=== PATIENT | female | born 1975 | race American Indian/Alaskan Native ===

== ENCOUNTER 2017-04-24 19:21 | Emergency (ER) | payer MEDICAID, OTHER ==
--- NOTE | 2017-04-24 20:02 | EDM.PDOC ---
ED HPI GENERAL MEDICAL PROBLEM - General Chief Complaint: Genitourinary Problem Stated Complaint: UTI [id number] Time Seen by Provider: 04/24/17 19:59 Source of Information: Reports: Patient History Limitations: Reports: No Limitations - History of Present Illness INITIAL COMMENTS - FREE TEXT/NARRATIVE: onset Sx today with intense burning did take a "azo" feeling slightly better. 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(s) Other Treatments SURVEY RESEARCH PROFESSOR: Azo Bladder Pain Score (Numeric/FACES): 8 - Related Data Allergies Allergy/AdvReac Type Severity Reaction Status Date / Time No Known Allergies Allergy Verified 04/24/17 19:30 Home Meds: Home Meds Cetirizine [[id number]] 04/24/17 [History] Multivitamin [Multi-Day Vitamins] 04/24/17 [History] Phenazopyridine HCl [Azo Urinary Pain Relief] 04/24/17 [History] Past Medical History Genitourinary History: Reports: UTI, Recurrent - Past Surgical History HEENT Surgical History: Reports: Other (See Below) Other HEENT Surgeries/Procedures: Tubes when younger Female Surgical History: Reports: None Social & Family History - Family History Family Medical History: Noncontributory - Tobacco Use Smoking Status *Q: Former Smoker Used Tobacco, but Quit: Yes Month Tobacco Last Used: 04/2002 - Caffeine Use Caffeine Use: Reports: None - Recreational Drug Use Recreational Drug Use: No ED ROS GENERAL - Review of Systems Review Of Systems: ROS reveals no pertinent complaints other than HPI. ED EXAM, RENAL/ - Physical Exam Exam: See Below Exam Limited By: No Limitations General Appearance: Alert, WD/WN, Mild Distress, Other (discomfort) Ears: Hearing Grossly Normal Throat/Mouth: Normal Voice, No Airway Compromise Head: Atraumatic Neck: Non-Tender, Full Range of Motion Respiratory/Chest: No Respiratory Distress Cardiovascular: Regular Rate, Rhythm GI/Abdominal: Soft, Non-Tender, Other. No: Guarding, Rigid, Rebound ( suprapubic discomfort) Neurological: Alert, Oriented, Normal Cognition, Normal Gait, No Motor/Sensory Deficits Psychiatric: Normal Affect, Normal Mood Skin Exam: Warm, Dry, Normal Color Lymphatic: No Adenopathy Course - Vital Signs Last Recorded V/S: Last Vital Signs Temp 36.6 C 04/24/17 19:25 Pulse 82 04/24/17 19:25 Resp 16 04/24/17 19:25 BP 138/97 H 04/24/17 19:25 Pulse Ox 99 04/24/17 19:25 - Orders/Labs/Meds Orders: Active Orders 24 hr Category Date Time Status UA W/MICROSCOPIC [URIN] Stat Lab 04/24/17 19:58 Results Phenazopyridine [Urinary Pain Relief] Med 04/24/17 20:17 Once 95 mg PO ONETIME ONE Sulfamethoxazole/Trimethoprim [Septra DS] Med 04/24/17 20:17 Once 1 tab PO ONETIME ONE Labs: Laboratory Tests 04/24/17 Range/Units 19:58 Urine Color [place] (YELLOW) Urine Appearance Slightly cloudy (CLEAR) Urine pH 6.0 (5.0-9.0) Ur Specific [place] 1.010 (1.005-1.030) Urine Protein 30 H (NEGATIVE) Urine Glucose (UA) 100 H (NEGATIVE) Urine Ketones Negative (NEGATIVE) Urine Occult Blood Large H (NEGATIVE) Urine Nitrite Positive H (NEGATIVE) Urine Bilirubin Negative (NEGATIVE) Urine Urobilinogen 2.0 H (0.2-1.0) mg/dL Ur Leukocyte Esterase Large H (NEGATIVE) - Re-Assessments/Exams Free Text/Narrative Re-Assessment/Exam: 04/24/17 20:17 results discussed with pt. Departure - Departure Time of Disposition: 20:18 Disposition: Home, Self-Care 01 Condition: Good Clinical Impression: UTI, Urinary tract infectious disease - Discharge Information Instructions: Urinary Tract Infection, Adult, [id number] Forms: ED Department Discharge Additional Instructions: 1) rest 2) drink lots of liquids 3) recheck as needed rx given; bactrim DS bid x 20 pyridium 100mg tid prn x 12 - My Orders Last 24 Hours: My Active Orders 04/24/17 19:58 UA W/MICROSCOPIC [URIN] Stat 04/24/17 20:17 Phenazopyridine [Urinary Pain Relief] 95 mg PO ONETIME ONE Sulfamethoxazole/Trimethoprim [Septra DS] 1 tab PO ONETIME ONE - Assessment/Plan Last 24 Hours: My Active Orders 04/24/17 19:58 UA W/MICROSCOPIC [URIN] Stat 04/24/17 20:17 Phenazopyridine [Urinary Pain Relief] 95 mg PO ONETIME ONE Sulfamethoxazole/Trimethoprim [Septra DS] 1 tab PO ONETIME ONE
[2017-04-24] MEDS ORDERED: Phenazopyridine 95 MG Tab PO ONE (20:17)
[2017-04-24] MEDS ORDERED: Sulfamethoxazole/Trimethoprim 800-160 MG Tab PO ONE (20:17)
== END 2017-04-24 20:35 | disposition home or self-care (01) ==
LOC: DL.ED 19:21
DX: N39.0 Urinary tract infection, site not specified (principal); Z87.891 Personal history of nicotine dependence
CPT/HCPCS: 81001; 99283; A9270